=== PATIENT | male | born 1995 | race Caucasian/White ===

== ENCOUNTER 2024-01-07 01:31 | Emergency (ER) | payer OTHER, MEDICAID, SELFPAY ==
[2024-01-07 01:41] VITALS: BP 141/84; PULSE 85; RESP 20; TEMP 36; O2SAT 98; BMI 37.6
--- NOTE | 2024-01-07 01:45 | PC.NURSE ---
Pt presenting to the ER w his father and sister. Pt presents w vomit hanging from his mouth and down the front of his shirt. Pts family states that the pt has been making attempts on his life attempting to eat rocks and stab himself w a knife. Pt stating that he would like to go home and refusing to enter the ED lobby. This RN and Lorna RN to the door to talk w the pt and his family. Pt only willing to come inside after Security calls [employer]. Pt then wheeled to ER room 13. After changing the pt into paper scrubs and taking pt belongings, the pt is out of his room multiple times attempting to leave. Pt advised that he cannot leave. Pt advised that staff will not fight him, but that he will be brought back using force if necessary by [employer]. PT verbalizes understanding of this, w mild verbal abuse to staff.Pt continues to come in and out of the room demanding medications for sleep. Pt states that he does not want the door closed because it locks and he does not trust staff. Compromise reached w the pt to leave the door open if the pt remains calm and agrees to comply w staff. Pt verbalizes understanding. Pt then again out of his room speaking to his father, multiple staff and EMD Mank. Pt again advised of consequences of leaving and given education on why he cannot leave. Pt refutes this information stating that he would like to leave and does not understand why he cannot leave. Teaching again given, w consequences that would follow from leaving including seclusion. PT verbalizes understanding and returns to his room. Meds given for agitation per EMD Mank. Pt given food, water, and warm blankets.
--- NOTE | 2024-01-07 01:45 | ED.PSYCH ---
HPI - Psych <Kalyn Billy, DO - Last Filed: 01/08/24 03:47> General Chief Complaint: Psychiatric Symptoms Stated Complaint: SI Time Seen by Provider: 01/07/24 01:41 Source: patient, family, RN notes reviewed and police Mode of arrival: Family Vehicle Limitations: no limitations History of Present Illness HPI Narrative: 28-year-old male who presents with complaint of alcohol intoxication and reported suicidal ideation. Patient states has a history of alcohol abuse states he has not been sober. This evening reportedly patient was upset because he has been sober and had drank. At 1 point he took a knife and cut himself on the arm and possibly stabbed himself chest. He has multiple superficial lacerations on his left forearm there is 1 very small superficial laceration on his chest. Family reports and report from law enforcement is that he made statements that he was going to harm himself. Patient states that he has not. He had a small amount of blood on his sweatshirt, he did throw up about an hour prior to arrival. Did fall over but did not hit his head or have loss of consciousness that was reported by family at bedside. Denies chest pain or shortness of breath no diarrhea or constipation no other GI issues. Patient states he does drink alcohol daily, states he uses marijuana, uses tobacco daily. Denies other recreational drugs. Patient arrived with father but law enforcement also arrived about the same time. Patient lives on [facility] and [place]. Spoke with patient's father, states that he was in prison treatment for substance abuse and bipolar. Was doing very well until his insurance coverage ran out because of patient's patient's age. Patient had moved home dad thought that he was doing well but was unaware that he would started drinking again. States that he has been having some escalating behaviors recently of the past several months and this evening things escalated quite a bit. Dad is concerned for patient's safety. His goal at this time is to help patient seek assistance for his mental health issues and substance abuse. Related Data Home Medications Medication Instructions Recorded Confirmed gabapentin 300 mg capsule 300 mg PO 3XD 01/07/24 01/07/24 lamotrigine 25 mg tablet 25 mg PO QAM 01/07/24 01/07/24 naltrexone 50 mg tablet 50 mg PO DAILY 01/07/24 01/07/24 Allergies Allergy/AdvReac Type Severity Reaction Status Date / Time No Known Drug Allergies Allergy Verified 01/07/24 01:46 Review of Systems <Kalyn Billy DO - Last Filed: 01/08/24 03:47> Review of Systems ROS Unobtainable: All systems reviewed & are unremarkable except as noted in HPI and below Patient History <Kalyn Billy DO - Last Filed: 01/08/24 03:47> Social History Smoking Status: Current every day smoker Exam <Kalyn Billy DO - Last Filed: 01/08/24 03:47> Narrative Exam Narrative: GENERAL: Alert and oriented x three, obese male. Patient is tearful does appear intoxicated. HEENT: Head normocephalic, atraumatic, EOMI, pupils reactive, face symmetric, moist mucous membranes, patient has vomit on his chin as well shirt. NECK: Supple, full range of motion CARDIOVASCULAR: Regular rate and rhythm without murmurs, rubs or gallops. RESPIRATORY: Breath sounds equal bilaterally, no wheezes rales or rhonchi. ABDOMEN: Soft, nontender. Normoactive bowel sounds all 4 quadrants. No guarding or rebound, rigidity, no mass : No CVA tenderness EXTREMITIES: Normal range of motion, no clubbing or edema. Neurovascularly intact NEUROLOGICAL: Cranial nerves II through XII grossly intact. Moving all extremities SKIN: Warm, dry, no petechiae, no rashes, patient has superficial lacerations multiple easily 20 or 30 on his left forearm, none requiring repair. Patient has a superficial abrasion on his right chest that is about 2 cm long. No puncture wounds or lacerations otherwise appreciated did have patient disrobe. PSYCH: Patient denies any suicidal ideation at this time. Initial Vital Signs Initial Vital Signs: Vital Signs Temperature 96.8 F L 01/07/24 01:41 Pulse Rate 85 01/07/24 01:41 Respiratory Rate 20 01/07/24 01:41 Blood Pressure 141/84 H 01/07/24 01:41 Pulse Oximetry 98 01/07/24 01:41 Oxygen Delivery Method Room Air 01/07/24 01:41 <David Palencia MD - Last Filed: 01/08/24 11:10> Initial Vital Signs Initial Vital Signs: Vital Signs Temperature 96.8 F L 01/07/24 01:41 Pulse Rate 85 01/07/24 01:41 Respiratory Rate 20 01/07/24 01:41 Blood Pressure 141/84 H 01/07/24 01:41 Pulse Oximetry 98 01/07/24 01:41 Oxygen Delivery Method Room Air 01/07/24 01:41 Course <Kalyn Billy DO - Last Filed: 01/08/24 03:47> Orders Ordered: Discontinued Medications Haloperidol (Haloperidol 5 Mg/Ml Vial) 10 mg IM NOW ONE Stop: 01/07/24 02:18 Last Admin: 01/07/24 02:29 Dose: 10 mg Documented By: SANTHOSH Lorazepam (Lorazepam 2 Mg/Ml Inj) 2 mg IM NOW ONE Stop: 01/07/24 02:18 Last Admin: 01/07/24 02:28 Dose: 2 mg Documented By: SANTHOSH Nicotine (Nicotine 21 Mg Patch) 21 mg TOP NOW ONE Stop: 01/07/24 01:42 Last Admin: 01/07/24 02:04 Dose: 21 mg Documented By: SANTHOSH Olanzapine (Olanzapine Odt 10 Mg Tab) 10 mg PO NOW ONE Stop: 01/07/24 02:50 Last Admin: 01/07/24 03:13 Dose: 10 mg Documented By: KURTIS Ondansetron HCl (Ondansetron 4 Mg Odt) 4 mg SL NOW ONE Stop: 01/07/24 01:42 Last Admin: 01/07/24 01:47 Dose: 4 mg Documented By: KURTIS Vital Signs Vital signs: Vital Signs - 8 hr 01/07/24 12:21 Temperature 98.6 F Pulse Rate 99 H Respiratory Rate 20 Blood Pressure 141/90 H Pulse Oximetry 100 Oxygen Delivery Method Room Air <David Palencia MD - Last Filed: 01/08/24 11:10> Orders Ordered: Discontinued Medications Haloperidol (Haloperidol 5 Mg/Ml Vial) 10 mg IM NOW ONE Stop: 01/07/24 02:18 Last Admin: 01/07/24 02:29 Dose: 10 mg Documented By: SANTHOSH Lorazepam (Lorazepam 2 Mg/Ml Inj) 2 mg IM NOW ONE Stop: 01/07/24 02:18 Last Admin: 01/07/24 02:28 Dose: 2 mg Documented By: SANTHOSH Nicotine (Nicotine 21 Mg Patch) 21 mg TOP NOW ONE Stop: 01/07/24 01:42 Last Admin: 01/07/24 02:04 Dose: 21 mg Documented By: SANTHOSH Olanzapine (Olanzapine Odt 10 Mg Tab) 10 mg PO NOW ONE Stop: 01/07/24 02:50 Last Admin: 01/07/24 03:13 Dose: 10 mg Documented By: KURTIS Ondansetron HCl (Ondansetron 4 Mg Odt) 4 mg SL NOW ONE Stop: 01/07/24 01:42 Last Admin: 01/07/24 01:47 Dose: 4 mg Documented By: KURTIS Vital Signs Vital signs: Vital Signs - 8 hr 01/07/24 12:21 Temperature 98.6 F Pulse Rate 99 H Respiratory Rate 20 Blood Pressure 141/90 H Pulse Oximetry 100 Oxygen Delivery Method Room Air MDM - Psych <Kalyn Billy, - Last Filed: 01/08/24 03:47> Lab Data 01/07/24 03:13 01/07/24 03:13 Labs: Lab Results 01/07/24 01/07/24 Range/Units 02:30 03:13 WBC 10.7 (4.5-11.0) X10^3/uL RBC 5.76 (4.5-5.9) X10^6/uL Hgb 18.3 H (13.5-17.5) g/dL Hct 52.3 (41-53) % MCV 90.9 (80-100) fL MCH 31.7 (26-34) PG MCHC 34.9 (30-36) % RDW 13.0 (11.6-14.8) % Plt Count 239 (150-400) X10^3/uL Neut % (Auto) 70.3 (50-75) % Lymph % (Auto) 20.6 L (25-40) % [place] % (Auto) 7.9 (3-14) % Eos % (Auto) 0.6 L (2-4) % Baso % (Auto) 0.6 (0-2) % Neut # (Auto) 7500 H (3942-7412) /uL Lymph # (Auto) 2200 (3197-3551) /uL [place] # (Auto) 800 (0-900) /uL Eos # (Auto) 100 (0-450) /uL Baso # (Auto) 100 (0-100) /uL Sodium 141 (137-145) mmol/L Potassium 4.0 (3.4-5.1) mmol/L Chloride 108 H (98-107) mmol/L Carbon Dioxide 18 L (22-32) mmol/L BUN 13 (9-20) mg/dL Creatinine 1.15 (0.66-1.25) mg/dL Estimated GFR > 60 (>60) mL/min BUN/Creatinine Ratio 11.3 (6-22) Glucose 135 H (70-100) mg/dL Calcium 9.1 (8.4-10.2) mg/dL Total Bilirubin 0.8 (0.2-1.3) mg/dL AST 104 H (17-59) IU/L ALT 218 H (<50) IU/L Alkaline Phosphatase 83 (38-126) U/L Total Protein 7.9 (6.3-8.2) g/dL Albumin 5.0 (3.5-5.0) g/dL Globulin 2.9 (1.7-4.1) g/dL Albumin/Globulin Ratio 1.7 (1.0-2.8) TSH 1.93 (0.47-4.68) uIU/mL Salicylates < 1.0 (<20) mg/dL U Opiates 300ng/mL cut Negative (Negative) Ur Oxycodone Screen Negative (Negative) Urine Methadone Screen Negative (Negative) Acetaminophen < 10 (10-30) ug/mL Ur Barbiturates Screen Negative (Negative) U Tricyclic Antidepress Negative (Negative) Ur Phencyclidine Scrn Negative (Negative) Ur Amphetamines Screen Negative (Negative) U Methamphetamines Scrn Negative (Negative) Ur MDMA Scrn (Ecstasy) Negative (Negative) U Benzodiazepines Scrn Negative (Negative) Urine Cocaine Screen Negative (Negative) U Marijuana (THC) Screen Positive H (Negative) Urine pH Normal (Normal) Urine Specific [place] Normal (Normal) Ethyl Alcohol 182 H ( - 10) mg/dL Ur Creatinine Normal (Normal) Urine Dip Bedside Urine Glucose Negative Bedside Urine Bilirubin - Negative Bedside Urine Ketone - Negative Urine Specific [place] 1.020 Bedside Urine Occult Blood - Negative Bedside Urine pH 6.0 Bedside Urine Protein +/- 15 Bedside Urine Urobilinogen - Negative Bedside Urine Nitrite - Negative Bedside Urine Leukocytes - Negative Esterase [facility] Medical decision making narrative: 28-year-old male reported history of alcohol abuse and bipolar disorder. Patient reported to have made suicidal statements to family and law enforcement earlier this evening had taken a knife states he did cut on his forearm but did not intend to kill himself. Had very small abrasion on his chest but no puncture wounds or other cuts. Patient denies intent to harm himself but does not appear to be intoxicated. Tetanus reported to be up-to-date. Patient's family at bedside states that he did make statements that he would harm himself and that he made these statements to law enforcement as well. Patient was in substance abuse as well as mental health treatment for some time while in [place] but and was doing well while regularly monitored but had to leave secondary to insurance no longer being available because of patient's age. Discussed with patient we will monitor until he is more sober and then re-evaluate for mental health status. Labs, urine were ordered. Patient was given Zofran and nicotine patch. Patient's father was at bedside for initial evaluation. Labs show white count 10 hemoglobin 18.3 platelets of 239. Electrolytes show a chloride of 108 CO2 18 sodium of 141 potassium of 4 BUN 13 creatinine 1.15, glucose is 135 calcium 9.1 bilirubin is 0.8, AST is 104 ALT is 218 alk-phos is 83 TSH is 1.93. Tylenol, salicylate are negative, ETOH is 182. Rapid drug screen positive for marijuana. Patient was initially agreeable for evaluation but continued to leave the room, demanded to leave and he was not able to contract for safety. Initially patient's dad was helpful in deescalating but patient became more agitated and frustrated dad left the department. Staff and myself attempted to redirect the patient multiple times. Discussed he needed to stay in the department until he was no longer intoxicated and be evaluated for mental health. Patient had to be redirected back but kept coming out of the room attempted to leave the department and made it to the front doors was somewhat erratic in his decision making. After some time discussed can give him some medications which he wanted. Was given IM Haldol and IM Ativan for agitation and anxiety. These medications took some time to take effect and patient became more frustrated over time. He asked for an additional dose of oral medication this was given. Patient attempted to leave the hospital and law enforcement was called but patient ultimately returned to the room before they arrived but continued to move in and out of the room. Patient was ultimately placed in seclusion with the door locked for his own safety as he is intoxicated not felt safe to be ambulating particularly with recent states about harming himself. Patient signed out to Dr. Palencia for evaluation for PROGRAMMER ANALYST once patient is no longer intoxicated. Unclear if patient will have any withdrawal issues but this possibility. <David Palencia MD - Last Filed: 01/08/24 11:10> Lab Data Labs: Lab Results 01/07/24 01/07/24 Range/Units 02:30 03:13 WBC 10.7 (4.5-11.0) X10^3/uL RBC 5.76 (4.5-5.9) X10^6/uL Hgb 18.3 H (13.5-17.5) g/dL Hct 52.3 (41-53) % MCV 90.9 (80-100) fL MCH 31.7 (26-34) PG MCHC 34.9 (30-36) % RDW 13.0 (11.6-14.8) % Plt Count 239 (150-400) X10^3/uL Neut % (Auto) 70.3 (50-75) % Lymph % (Auto) 20.6 L (25-40) % [place] % (Auto) 7.9 (3-14) % Eos % (Auto) 0.6 L (2-4) % Baso % (Auto) 0.6 (0-2) % Neut # (Auto) 7500 H (3037-4655) /uL Lymph # (Auto) 2200 (4363-7895) /uL [place] # (Auto) 800 (0-900) /uL Eos # (Auto) 100 (0-450) /uL Baso # (Auto) 100 (0-100) /uL Sodium 141 (137-145) mmol/L Potassium 4.0 (3.4-5.1) mmol/L Chloride 108 H (98-107) mmol/L Carbon Dioxide 18 L (22-32) mmol/L BUN 13 (9-20) mg/dL Creatinine 1.15 (0.66-1.25) mg/dL Estimated GFR > 60 (>60) mL/min BUN/Creatinine Ratio 11.3 (6-22) Glucose 135 H (70-100) mg/dL Calcium 9.1 (8.4-10.2) mg/dL Total Bilirubin 0.8 (0.2-1.3) mg/dL AST 104 H (17-59) IU/L ALT 218 H (<50) IU/L Alkaline Phosphatase 83 (38-126) U/L Total Protein 7.9 (6.3-8.2) g/dL Albumin 5.0 (3.5-5.0) g/dL Globulin 2.9 (1.7-4.1) g/dL Albumin/Globulin Ratio 1.7 (1.0-2.8) TSH 1.93 (0.47-4.68) uIU/mL Salicylates < 1.0 (<20) mg/dL U Opiates 300ng/mL cut Negative (Negative) Ur Oxycodone Screen Negative (Negative) Urine Methadone Screen Negative (Negative) Acetaminophen < 10 (10-30) ug/mL Ur Barbiturates Screen Negative (Negative) U Tricyclic Antidepress Negative (Negative) Ur Phencyclidine Scrn Negative (Negative) Ur Amphetamines Screen Negative (Negative) U Methamphetamines Scrn Negative (Negative) Ur MDMA Scrn (Ecstasy) Negative (Negative) U Benzodiazepines Scrn Negative (Negative) Urine Cocaine Screen Negative (Negative) U Marijuana (THC) Screen Positive H (Negative) Urine pH Normal (Normal) Urine Specific [place] Normal (Normal) Ethyl Alcohol 182 H ( - 10) mg/dL Ur Creatinine Normal (Normal) Urine Dip Bedside Urine Glucose Negative Bedside Urine Bilirubin - Negative Bedside Urine Ketone - Negative Urine Specific [place] 1.020 Bedside Urine Occult Blood - Negative Bedside Urine pH 6.0 Bedside Urine Protein +/- 15 Bedside Urine Urobilinogen - Negative Bedside Urine Nitrite - Negative Bedside Urine Leukocytes - Negative Esterase MDM Narrative Medical decision making narrative: 28-year-old male reported history of alcohol abuse and bipolar disorder. Patient reported to have made suicidal statements to family and law enforcement earlier this evening had taken a knife states he did cut on his forearm but did not intend to kill himself. Had very small abrasion on his chest but no puncture wounds or other cuts. Patient denies intent to harm himself but does not appear to be intoxicated. Tetanus reported to be up-to-date. Patient's family at bedside states that he did make statements that he would harm himself and that he made these statements to law enforcement as well. Patient was in substance abuse as well as mental health treatment for some time while in [place] but and was doing well while regularly monitored but had to leave secondary to insurance no longer being available because of patient's age. Discussed with patient we will monitor until he is more sober and then re-evaluate for mental health status. Labs, urine were ordered. Patient was given Zofran and nicotine patch. Patient's father was at bedside for initial evaluation. Labs show white count 10 hemoglobin 18.3 platelets of 239. Electrolytes show a chloride of 108 CO2 18 sodium of 141 potassium of 4 BUN 13 creatinine 1.15, glucose is 135 calcium 9.1 bilirubin is 0.8, AST is 104 ALT is 218 alk-phos is 83 TSH is 1.93. Tylenol, salicylate are negative, ETOH is 182. Rapid drug screen positive for marijuana. Patient was initially agreeable for evaluation but continued to leave the room, demanded to leave and he was not able to contract for safety. Initially patient's dad was helpful in deescalating but patient became more agitated and frustrated dad left the department. Staff and myself attempted to redirect the patient multiple times. Discussed he needed to stay in the department until he was no longer intoxicated and be evaluated for mental health. Patient had to be redirected back but kept coming out of the room attempted to leave the department and made it to the front doors was somewhat erratic in his decision making. After some time discussed can give him some medications which he wanted. Was given IM Haldol and IM Ativan for agitation and anxiety. These medications took some time to take effect and patient became more frustrated over time. He asked for an additional dose of oral medication this was given. Patient attempted to leave the hospital and law enforcement was called but patient ultimately returned to the room before they arrived but continued to move in and out of the room. Patient was ultimately placed in seclusion with the door locked for his own safety as he is intoxicated not felt safe to be ambulating particularly with recent states about harming himself. Patient signed out to Dr. Palencia for evaluation for PROGRAMMER ANALYST once patient is no longer intoxicated. Unclear if patient will have any withdrawal issues but this possibility. 7:00 a.m..Talha: ?sign out from Dr Billy, patient has had Haldol and Zyprexa and Ativan. His resting comfortably. Currently not in a locked room. No [id number] indicated at this time. Awaiting for social work. 7:30 a.m.. Patient resting comfortably. Not in locked seclusion EKG normal sinus rhythm rate 86 normal EKG QT 386 12:36 p.m.. Heather psychologist social has been working with patient. Patient is very cooperative. Not agitated. No SI no HI. Patient desires intense outpatient services. Not meeting criteria for inpatient at this time. Does not meet criteria for DCR. Or [place]ov[place]'s law 1:28 p.m.. Patient is awake alert oriented x4. He has not agitated or combative. He is very pleasant at this time. He apologized for what occurred last night. He has been off of Lamictal for the past 3 months but does not know the dosing. He is being treated for bipolar. No SI or HI at this time. No auditory or visual hallucinations. No signs of withdrawal. Return precautions reviewed with him. He desires discharge home. He would like to follow up outpatient resources provided by psychologist social. farmworker has spoken with patient and father as well they agree on outpatient follow up. Discharge Plan Departure Patient Disposition: Home Clinical Impression: Alcohol abuse Bipolar disorder Qualifiers: Active/Remission status: remission status unspecified Qualified Code(s): F31.9 - Bipolar disorder, unspecified Instructions: DI for Alcohol Use Disorder, DI for Bipolar Disorder, DI for Suicidal Ideation-Adult Activity Restrictions/Additional Instructions: No driving operating machinery today. Please follow up with resources provided to you by psychologist social. Please do not drink alcohol. Please see family doctor for follow up and to resume your home medications. Prescriptions: No Action naltrexone 50 mg tablet 50 mg PO DAILY lamotrigine 25 mg tablet 25 mg PO QAM gabapentin 300 mg capsule 300 mg PO 3XD Referrals: [facility], [Other] Stand Alone Forms: Patient Portal/API
[2024-01-07] MEDS: ONDANSETRON 4 MG ODT SL (01:47)
[2024-01-07] MEDS: NICOTINE 21 MG PATCH TOP (02:04)
--- NOTE | 2024-01-07 02:18 | PC.NURSE ---
AN/SYQ 13 NAV/C2 OPERATOR NOTE : Staff continue to help keep pt safe and educating him regarding he will need to stay the night and speak to social work in the am. He agrees to do so and MD will provive medication to help with sleep.
[2024-01-07] MEDS: LORazepam 2 MG/ML INJ IM (02:28)
[2024-01-07] MEDS: HALOPERIDOL 5 MG/ML VIAL 10 MG IM (02:29)
[2024-01-07 02:43] LABS: UR Morphine/Opiate cutoff 300 Negative (Negative); Ur Creatinine Normal (Normal); Ur Specific Gravity Normal (Normal); Urine Amphetamines Negative (Negative); Urine Barbiturates Negative (Negative); Urine Benzodiazepines Negative (Negative); Urine Cocaine Negative (Negative); Urine MDMA Negative (Negative); Urine Methadone Negative (Negative); Urine Methamphetamines Negative (Negative); Urine Oxycodone Negative (Negative); Urine Phencyclidine Negative (Negative); Urine Tetrahydrocannabinol Positive (Negative); Urine Tricyclic Antidepressant Negative (Negative); Urine pH Normal (Normal)
[2024-01-07] MEDS: OLANZapine ODT 10 MG TAB PO (03:13)
--- NOTE | 2024-01-07 03:15 | PC.NURSE ---
Pt standing near door of room whistling loudly. This nurse requested that pt stop because other pts were in the dept. Pt refused & started whistling louder. Pt was informed that the door would be closed if he didn't lower or stop whistling. Pt continued to whistle. I attempted to close the door & pt started pushing it back open & yelling at staff. Pt pushed past the staff & exited the dept. At hospital exit he was convinced to return to his room. Pt walked back to room w/o incident.
--- NOTE | 2024-01-07 03:25 | PC.NURSE ---
[employer] called to assist w keeping the pt in the department. Security, multiple staff to the bedside to attempt to reason w the pt. Pt non redirectable. Pt stating that he wants to go home. Pt pushing past multiple staff and being verbally abusive. Under staff watch and unassisted by staff pt walked out of the department, through lobby and to ER front door. Pt was then able to be talked back inside the department. Pt walked back in unassisted and sat on his bed. [employer] to bedside and advised of situation. Lab called to assist with blood draw. [employer] on stand by to assist if necessary to keep the pt in the room. Pt advised that the door would be shut due to his multiple attempts at leaving. Pt verbalized understanding after medication administration and laid down on his bed w/o further incident.
[2024-01-07 03:33] LABS: Add Manual Diff / Slide Review NO; Basophils Absolute Auto 100 /uL (0-100); Basophils Percent Auto 0.6 % (0-2); Eosinophils Absolute Auto 100 /uL (0-450); Eosinophils Percent Auto 0.6 % (2-4); Hematocrit 52.3 % (41-53); Hemoglobin 18.3 g/dL (13.5-17.5); Lymphocytes Absolute Auto 2200 /uL (1100-4500); Lymphocytes Percent Auto 20.6 % (25-40); Mean Corpuscular HGB Conc 34.9 % (30-36); Mean Corpuscular Hemoglobin 31.7 PG (26-34); Mean Corpuscular Volume 90.9 fL (80-100); Monocytes Absolute Auto 800 /uL (0-900); Monocytes Percent Auto 7.9 % (3-14); Neutrophils Absolute Auto 7500 /uL (1500-7000); Neutrophils Percent Auto 70.3 % (50-75); Platelet Count 239 X10^3/uL (150-400); Red Blood Cell Count 5.76 X10^6/uL (4.5-5.9); White Blood Cell Count 10.7 X10^3/uL (4.5-11.0)
[2024-01-07 03:48] LABS: Acetaminophen < 10 ug/mL (10-30); Alanine Aminotransferase 218 IU/L (<50); Albumin Globulin Ratio 1.7 (1.0-2.8); Alkaline Phosphatase 83 U/L (38-126); Aspartate Aminotransferase 104 IU/L (17-59); BUN Creatinine Ratio 11.3 (6-22); Bilirubin Total 0.8 mg/dL (0.2-1.3); Blood Urea Nitrogen 13 mg/dL (9-20); Calcium 9.1 mg/dL (8.4-10.2); Carbon Dioxide 18 mmol/L (22-32); Chloride 108 mmol/L (98-107); Estimated Glomerular Filt Rate > 60 mL/min (>60); Ethanol (ETOH) 182 mg/dL; Globulin 2.9 g/dL (1.7-4.1); Glucose 135 mg/dL (70-100); HEMOLYSIS < 15 (0-50); Salicylate < 1.0 mg/dL (<20); Sodium 141 mmol/L (137-145); Total Protein 7.9 g/dL (6.3-8.2)
[2024-01-07 04:32] LABS: TSH w/ Reflex to FT4 1.93 uIU/mL (0.47-4.68)
--- NOTE | 2024-01-07 08:41 | PC.NURSE ---
Assumed care of pt at 0700. Pt laying in stretcher and appears to be resting. Equal chest ride and fall observed with RR 18. Skin pink warm and dry.
--- NOTE | 2024-01-07 09:22 | PC.NURSE ---
Pt appears to be resting on stretcher. Observed equal chest rise and fall RR 18. Full ED psych assessment deferred until pt awake and alert. Restraint order d/s. Dr Palencia aware.
--- NOTE | 2024-01-07 12:12 | PC.NURSE ---
ED EDUCATIONAL PSYCHOLOGY TEACHER and RN in room with pt. Pt alert. Given lunch tray from dietary dept. Vital signs taken and EKG done. Pt presently denies SI/HI. A&Ox4 and answers all questions appropriately. Pt does not remember details of events leading up to checking into ED. Pt states that he is unsure if he would like to seek inpatient mental health care at this time and states that he is not currently taking medication for bipolar disorder. Pt has hx of bipolar and associated anxiety and depression. Cuts noted bilaterally on arms in various degrees of healing and pt admits to self-harm in the past but denies desire to self harm at this time.
--- NOTE | 2024-01-07 12:16 | EKG_ITS ---
[place] [id number] [place] [id number] Test Date: 2024-01-07 Pat Name: Sterling Turner Department: [facility] Room: Gender: Male Chief Executive Or Managing Director: HADLEY : 1995 Requested By: Order Number: [id number] Reading MD: Arthur Isidro MD Measurements Intervals [place] Rate: 86 P: 59 ND: 148 QRS: 5 QRSD: 94 T: 22 QT: 386 QTc: 461 Interpretive Statements Normal sinus rhythm Electronically Signed On 01-08-2024 7:37:32 PDT by Arthur Isidro MD
[2024-01-07 12:21] VITALS: BP 141/90; PULSE 99; RESP 20; TEMP 37; O2SAT 100
[2024-01-07 13:39] VITALS: BP 139/91; PULSE 97; RESP 18; TEMP 36.4; O2SAT 100
--- NOTE | 2024-01-07 14:03 | CM.SWNOTE ---
DEVELOPMENTAL TRAINING COUNSELOR - Interactive Media Designer Assessment DEVELOPMENTAL TRAINING COUNSELOR - Interactive Media Designer Assessment Start: 01/07/24 13:41 Freq: Status: Discharge Protocol: Document 01/07/24 13:42 MW (Rec: 01/07/24 14:02 MW [id number]) DEVELOPMENTAL TRAINING COUNSELOR/Interactive Media Designer Assessment Time Spent with Patient Start date 01/07/24 Visit Start Time 12:00 End date 01/07/24 Visit End Time 12:30 Total time Care Management spent on 30 minutes patient visit-in minutes Mental Health Screening Include Onset, Duration, Intensity Presenting Problem Patient presents to the ED for suicidal ideation and self- harm. Patient family reported that patient has been binge drinking and was also eating gravel, threatening to stab self to end his life. Per ED Provider, pt's lacerations on forearms and one laceration on chest were very superficial. Precipitating Event(s) Patient relapsed in September 2023 after 17months of rehabiliation and living in a sober house in [place] ( [facility]). Patient returned to [place] to be with family and reports binge drinking due to loneliness and lack of support. Patient Strengths Patient has a strong family support system (father, mother , sister, brother and sister- in-law). Patient is employed and has history of long periods of sobriety. Current Behavioral Health Provider(s) None reported. Include Facility, Provider, Ph. # Psych. Hx Mental Health and Chemical Patient has a previous Dependency diagnosis of bipolar 2 disorder with anxiety, alcohol use disorder. Family Hx of Behavioral Abuse None reported. Psychiatric Hospitalizations (date(s)/ Patient reports an inpatient location) stay when he was 15yo at [facility] and two inpatient stays in [place] (could not recall name of hospital). Psychosocial information & Support Patient is a 28yo male, Systems resident of [place]. Patient lives with his father, mother and sister. Patient has friends in [place] and in [place]. Patient also has good support in co-workers. 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 Substance Abuse Screening Include Onset, Duration, Intensity Rehab Facilities? ((Date(s), Location(s) [facility] - stayed for 17 ) months, could not recall dates . History of Withdrawal? Seizures? Patient denies any history of withdrawal symptoms, denies seizures, tremors. Longest Period of Sobriety Patient's longest period of sobriety was 17 months. Legal Concerns Legal Matters - Outstanding Issues None reported. Mental Status Orientation (Person/Place/Time) AOx3 Stated Mood Okay today. Affect (Congruent with Mood?) Patient presented with a flat affect, congruent with mood. Thought Content - Specify/Describe Patient did not report any Obsessions, Delusions, Hallucinations hallucinations or delusions. Thought Processes (Rrjwunf-Zwzinqks-Kqht Logical, goal-oriented. Cymmqclg-Drwtdihm-Losvkrcohg- Yjhnajhtpgtlye-Fvtiabn-Txwxccqfupgw- Thought Blocking) Speech (Tiuelz-Dvjy-Lhwwlgp-Rapid-Soft- Normal, soft Loud-Pressured) Motor (Pvlgrc-Hufhszjzk-Bpkp-Other) Patient was shaking during assessment, denied it to be from withdrawal. Patient endorsed this was from being cold and agreed to warm blanket. Insight (Mvwb-Zqwz-Hzdu/Limited) Fair/limited Judgement (Hyss-Hzqm-Pmpf/Limited) Fair/limited Impulse Control (Adequate-Impaired) Impaired Memory (Uthrrcadl-Vthdka-Gknvfo, Intact, not formally assessed Impaired-Intact) Concentration (Intact-Impaired) Intact Attention (Intact-Impaired) Intact Behavior (Appropriate-Inappropriate) Appropriate Additional Comment Patient was calm, cooperative and communicative during this DEVELOPMENTAL TRAINING COUNSELOR assessment. Risk Assessment Suicidal Ideation (Plan) No Homicidal Ideation (Plan) No Comment Per EMR, pt was expressing suicidal ideation at initial presentation. Patient denied 3x with both DEVELOPMENTAL TRAINING COUNSELOR and RN in the room after sleep/medication. Patient reported having a history of suicidal ideation/ attempt when he was 15yo, I wanted to jump off a bridge. Patient explained he attended inpatient treatment at [facility] after this episode . Intervention Intervention DEVELOPMENTAL TRAINING COUNSELOR meets with patient. Patient reports remembering very little of the events of his initial presentation to the ED. He was able to explain his binge drinking prior to arrival and what led to the lacerations on his forearms. DEVELOPMENTAL TRAINING COUNSELOR and patient discuss next steps. Patient agreeable to [facility] treatment, referral to [facility]. Patient denies SI/HI and is agreeable to following discharge instructions to assist with cessation of etoh use. DEVELOPMENTAL TRAINING COUNSELOR discusses the above with pt's father, Sherif. Pt's father concerned for pt's follow through with treatment recommendations as he has historically been evasive to treatment. DEVELOPMENTAL TRAINING COUNSELOR discussed a referral to the [facility] Crisis Team and empowered pt's father to also call their team if he is concerned for possible mobile outreach assessment, if necessary. At this time, it is the opinion of this DEVELOPMENTAL TRAINING COUNSELOR that patient would benefit from intensive outpatient [facility] treatment. DEVELOPMENTAL TRAINING COUNSELOR informs ED provider, Dr. Palencia, who indicates agreement. DEVELOPMENTAL TRAINING COUNSELOR informs RN Judi . Plan RA Plan Once patient is medically clear, pt will discharge home with father to transport. Pt to follow up with [facility] at [facility] intake assessment on Friday, 01/12 at 9:00am and [facility] follow up scheduled for this weekend between 8-10pm. DEVELOPMENTAL TRAINING COUNSELOR reviewed this plan with pt and father who both verbalized agreement and understanding. MICK Lemos
== END 2024-01-07 13:42 | disposition home or self-care (01) ==
PROVIDERS: Emergency Medicine; Emergency Provider Emergency Medicine
DX: F10.129 Alcohol abuse with intoxication, unspecified (principal); F31.9 Bipolar disorder, unspecified; R45.851 Suicidal ideations; R03.0 Elevated blood-pressure reading, without diagnosis of hypertension; Y90.6 Blood alcohol level of 120-199 mg/100 ml
CPT/HCPCS: 36415; 80053; 80305; 80320; 80329; 81003; 84443; 85025; 93005; 96372; 99285; G0480; J1630; J2060

== ENCOUNTER 2024-10-21 16:27 | Emergency (ER) | payer OTHER, MEDICAID, SELFPAY ==
[2024-10-21 16:50] VITALS: BP 140/74; PULSE 88; RESP 18; TEMP 37.1; O2SAT 100; BMI 29.5
--- NOTE | 2024-10-21 16:58 | ED.GENADULT ---
HPI - General Adult General Chief complaint: Urogenital-Male Stated complaint: sent by walkin possible hernia Time Seen by Provider: 10/21/24 16:56 Source: patient Mode of arrival: Ambulatory History of Present Illness HPI narrative: 29-year-old gentleman with increasing pain and tenderness in the right inguinal area. It has been increasing over the last week. Was initially seen at urgent Care sent to the emergency department for further evaluation. no fevers or chills. No prior diagnoses of hernia. No heavy lifting or significant injury. new sexual partner over the last 3 months with STD testing prior to intimacy. No prior history of herpes. Related Data Home Medications Medication Instructions Recorded Confirmed gabapentin 300 mg capsule 300 mg PO 3XD 01/07/24 01/07/24 lamotrigine 25 mg tablet 25 mg PO QAM 01/07/24 01/07/24 naltrexone 50 mg tablet 50 mg PO DAILY 01/07/24 01/07/24 Allergies Allergy/AdvReac Type Severity Reaction Status Date / Time No Known Drug Allergies Allergy Verified 10/21/24 16:53 Review of Systems Review of Systems Narrative: Pertinent positive and negative findings as per HPI Patient History tobacco type: cigarettes alcohol intake frequency: 3 or more drinks per day Exam Initial Vital Signs Initial Vital Signs: Vital Signs Temperature 98.8 F 10/21/24 16:50 Pulse Rate 88 10/21/24 16:50 Respiratory Rate 18 10/21/24 16:50 Blood Pressure 140/74 10/21/24 16:50 Pulse Oximetry 100 10/21/24 16:50 Oxygen Delivery Method Room Air 10/21/24 16:50 General: Alert appropriate in no acute distress Respiratory: Able to speak in full sentences, no obvious respiratory distress Skin: No obvious rashes, warm and dry abdomen: No pelvic tenderness no CVA pain Neurologic: Grossly intact no obvious asymmetries or abnormalities Psych: appropriate insight and affect, cooperative Genitals: He has isolated right inguinal lymph node that is somewhat tender which is the source of his pain. There was no overlying erythema. There is a 1 cm in diameter dry erythematous plaque just over this that patient states is from a jockstrap that he wears who were yesterday. Has just been present for 24 hours. Other external genital exam is unremarkable with no signs of infection. No hernias on either side and no tenderness with testicular exam Course Vital Signs Vital signs: Vital Signs - 8 hr 10/21/24 16:50 Temperature 98.8 F Pulse Rate 88 Respiratory Rate 18 Blood Pressure 140/74 Pulse Oximetry 100 Oxygen Delivery Method Room Air Medical Decision Making [facility] Narrative Medical decision making narrative: 29-year-old gentleman with increasing pain in the right groin for a week. Has a tender inguinal lymph node without obvious evidence for infection. New penile discharge, vesicular rashes, injuries to the genitals, lower abdominal area or lower extremity. He does have a small dry plaque circular proximally 1.5 cm in diameter that he believes his simply an irritation spot from clothing warn yesterday. He states that he will occasionally have these develop and they typically resolve within 24 hours. He declined any medication for this. Possibility for the rash could be tinea cruris. remainder of exam does not suggest STD, cellulitis, other infection. I suggested anticipatory watching to see if source of infection or reason for right inguinal adenopathy is identified. Does not have further adenopathy and at this point additional workup is not indicated. findings reviewed with the patient and he is safe for discharge home Discharge Plan Departure Patient Disposition: Home Clinical Impression: Inguinal adenopathy Prescriptions: No Action naltrexone 50 mg tablet 50 mg PO DAILY lamotrigine 25 mg tablet 25 mg PO QAM gabapentin 300 mg capsule 300 mg PO 3XD Stand Alone Forms: Patient Portal/API/Survey
--- NOTE | 2024-10-21 17:21 | PC.NURSE ---
Pt seen and assessed by provider prior to nurse being able to assess pt
== END 2024-10-21 17:20 | disposition home or self-care (01) ==
PROVIDERS: Emergency Provider Emergency Medicine
DX: R59.0 Localized enlarged lymph nodes (principal)
CPT/HCPCS: 99281